=== PATIENT | female | born 1985 | race Caucasian/White ===

== ENCOUNTER 2019-04-28 06:49 | Emergency (ER) | payer BC ==
[2019-04-28] MEDS ORDERED: Sodium Chloride 0.9% 1,000 ML IV ONE (06:52)
[2019-04-28] MEDS ORDERED: Aspirin 81 MG Tab.Chew PO ONE (06:52)
--- NOTE | 2019-04-28 07:02 | EDM.PDOC ---
ED HPI GENERAL MEDICAL PROBLEM - General Chief Complaint: Chest Pain Stated Complaint: CHEST PAIN Time Seen by Provider: 04/28/19 06:58 Source of Information: Reports: Patient - History of Present Illness INITIAL COMMENTS - FREE TEXT/NARRATIVE: HISTORY AND PHYSICAL: History of present illness: []Patient presents with right-sided chest pain for 1 week, pain waxing and waning over the last week currently 2 out of 10. She awoke with discomfort this morning at 3 AM and went to work presents now as such, she does have history of anxiety and did have some increased anxiety well at work however pain seems to be reproducible on right sternal border at current there is also food component that she had eaten pulled pork sandwich prior to going to bed Patient is in no distress no fever nausea vomiting chills sweats no shortness breath headache dizziness or palpitation no bowel or urine symptoms no radiation arm neck or jaw no diaphoresis Review of systems: As per history of present illness and below otherwise all systems reviewed and negative. Past medical history: As per history of present illness and as reviewed below otherwise noncontributory. Surgical history: As per history of present illness and as reviewed below otherwise noncontributory. Social history: No reported history of drug or alcohol abuse. Family history: As per history of present illness and as reviewed below otherwise noncontributory. Physical exam: HEENT: Atraumatic, normocephalic, pupils reactive, negative for conjunctival pallor or scleral icterus, mucous membranes moist, throat clear, neck supple, nontender, trachea midline. Lungs: Clear to auscultation, breath sounds equal bilaterally, chest nontender on left, tender along right sternal border. Heart: S1S2, regular, negative for clicks, rubs, or JVD. Abdomen: Soft, nondistended, nontender. Negative for masses or hepatosplenomegaly. Negative for costovertebral tenderness. Pelvis: Stable nontender. Genitourinary: Deferred. Rectal: Deferred. Extremities: Atraumatic, negative for cords or calf pain. Neurovascular unremarkable. Neuro: Awake, alert, oriented. Cranial nerves II through XII unremarkable. Cerebellum unremarkable. Motor and sensory unremarkable throughout. Exam nonfocal. Diagnostics: [CBC CMP troponin lipase Chest 1 view EKG ] Therapeutics: [ normal saline Aspirin ] Impression: [re producible chest wall pain history of anxiety ] Definitive disposition and diagnosis as appropriate pending reevaluation and review of above. chest Pain Score (Numeric/FACES): 2 - Related Data Allergies Allergy/AdvReac Type Severity Reaction Status Date / Time No Known Allergies Allergy Verified 04/28/19 06:56 Home Meds: Home Meds QUEtiapine [SEROquel] 100 mg PO BEDTIME 04/28/19 [History] buPROPion [Wellbutrin] 0 mg PO DAILY 04/28/19 [History] ED ROS GENERAL - Review of Systems Review Of Systems: See Below ED EXAM, GENERAL - Physical Exam Exam: See Below Course - Vital Signs Last Recorded V/S: Last Vital Signs Temp 97 F 04/28/19 06:53 Pulse 78 04/28/19 06:53 Resp 17 04/28/19 06:53 BP 131/89 04/28/19 06:53 Pulse Ox 98 04/28/19 06:53 - Orders/Labs/Meds Orders: Active Orders 24 hr Category Date Time Status Chest 1V Frontal [CR] Stat Exams 04/28/19 06:52 Ordered CBC WITH AUTO DIFF [HEME] Stat Lab 04/28/19 06:51 Ordered COMPREHENSIVE METABOLIC PN,CMP [CHEM] Stat Lab 04/28/19 06:52 Ordered HCG QUALITATIVE,URINE [URCHEM] Stat Lab 04/28/19 06:53 Ordered LIPASE [CHEM] Stat Lab 04/28/19 06:52 Ordered TROPONIN I [CHEM] Stat Lab 04/28/19 06:52 Ordered UA RFX YOVANY AND CULT IF INDIC [URIN] Stat Lab 04/28/19 06:53 Ordered Sodium Chloride 0.9% [Normal Saline] 1,000 ml Med 04/28/19 06:52 Active IV STAT Medication Orders Sodium Chloride (Normal Saline) 1,000 mls @ 999 mls/hr IV STAT ONE Stop: 04/28/19 07:52 Meds: Medications Generic Name Dose Route Start Last Admin Trade Name Freq PRN Reason Stop Dose Admin Sodium Chloride 1,000 mls @ 999 mls/hr 04/28/19 06:52 Normal Saline IV 04/28/19 07:52 STAT ONE Discontinued Medications Generic Name Dose Route Start Last Admin Trade Name Freq PRN Reason Stop Dose Admin Aspirin 324 mg 04/28/19 06:52 Aspirin PO 04/28/19 06:53 ONETIME ONE Departure - Departure Time of Disposition: 07:02 Disposition: Home, Self-Care 01 Condition: Good Clinical Impression: Chest wall pain - Discharge Information Referrals: PCP,None [Primary Care Provider] - Additional Instructions: The following information is given to patients seen in the emergency department who are being discharged to home. This information is to outline your options for follow-up care. We provide all patients seen in our emergency department with a follow-up referral. The need for follow-up, as well as the timing and circumstances, are variable depending upon the specifics of your emergency department visit. If you don't have a primary care physician on staff, we will provide you with a referral. We always advise you to contact your personal physician following an emergency department visit to inform them of the circumstance of the visit and for follow-up with them and/or the need for any referrals to a consulting specialist. The emergency department will also refer you to a specialist when appropriate. This referral assures that you have the opportunity for follow-up care with a specialist. All of these measure are taken in an effort to provide you with optimal care, which includes your follow-up. Under all circumstances we always encourage you to contact your private physician who remains a resource for coordinating your care. When calling for follow-up care, please make the office aware that this follow-up is from your recent emergency room visit. If for any reason you are refused follow-up, please contact the [facility] emergency department at and asked to speak to the emergency department charge nurse. - My Orders Last 24 Hours: My Active Orders 04/28/19 06:51 CBC WITH AUTO DIFF [HEME] Stat 04/28/19 06:52 Chest 1V Frontal [CR] Stat COMPREHENSIVE METABOLIC PN,CMP [CHEM] Stat LIPASE [CHEM] Stat TROPONIN I [CHEM] Stat Sodium Chloride 0.9% [Normal Saline] 1,000 ml IV STAT 04/28/19 06:53 HCG QUALITATIVE,URINE [URCHEM] Stat UA RFX YOVANY AND CULT IF INDIC [URIN] Stat - Assessment/Plan Last 24 Hours: My Active Orders 04/28/19 06:51 CBC WITH AUTO DIFF [HEME] Stat 04/28/19 06:52 Chest 1V Frontal [CR] Stat COMPREHENSIVE METABOLIC PN,CMP [CHEM] Stat LIPASE [CHEM] Stat TROPONIN I [CHEM] Stat Sodium Chloride 0.9% [Normal Saline] 1,000 ml IV STAT 04/28/19 06:53 HCG QUALITATIVE,URINE [URCHEM] Stat UA RFX YOVANY AND CULT IF INDIC [URIN] Stat
--- NOTE | 2019-04-28 07:32 | CR ---
INDICATION: Chest pain x1 week. FINDINGS: A portable AP upright view of the chest was obtained. The cardiac silhouette and pulmonary vasculature are within normal limits. The lungs are clear bilaterally. IMPRESSION: No evidence of acute pulmonary disease. Dictated by Antony Monique MD @ Apr 28 2019 7:30AM Signed by Dr. Antony Monique @ Apr 28 2019 7:31AM
[2019-04-28 07:33] LABS: CHLORIDE,CL 101 mmol/L (98-107); SODIUM,NA 138 mmol/L (136-145)
== END 2019-04-28 08:23 | disposition home or self-care (01) ==
LOC: MW.ED 06:49
DX: R07.89 Other chest pain (principal); F41.9 Anxiety disorder, unspecified; Z79.899 Other long term (current) drug therapy
CPT/HCPCS: 36415; 71045; 80053; 81001; 81025; 83690; 84484; 85025; 93005; 96360; 99285; A9270; J7040; 99283

== ENCOUNTER 2020-09-18 08:45 | Emergency (ER) | payer OTHER, BC ==
--- NOTE | 2020-09-18 09:12 | EDM.PDOC ---
ED HPI GENERAL MEDICAL PROBLEM - General Chief Complaint: Lower Extremity Injury/Pain Stated Complaint: INJURY TO LT BIG TOE Time Seen by Provider: 09/18/20 08:46 Source of Information: Reports: Patient History Limitations: Reports: No Limitations - History of Present Illness INITIAL COMMENTS - FREE TEXT/NARRATIVE: 33-year-old female the past medical history of anxiety presenting with a toe injury. 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 She is concerned that she may have broken her toe. She has been unable to bear weight normally due to pain. She took ibuprofen at home with partial relief of her pain. She denies any other injuries. Past medical history: Reviewed, no additional pertinent history. Surgical history: Reviewed in system, no additional pertinent history. Social history: Reviewed in system, no additional pertinent history. Family history: Reviewed in system, no additional pertinent history. PHYSICAL EXAM Vital signs reviewed. Nursing notes reviewed. Constitutional: Awake, alert, non-distressed. Head: Normocephalic, atraumatic. Eyes: EOMI, conjunctiva normal, no discharge, no scleral icterus. Ears, Nose, Throat: External ears and nose normal, moist oral mucosa. Cardiovascular: 2+ left DP pulse, capillary refill less than 2 seconds. Pulmonary: normal work of breathing, no accessory muscle use. Abdomen/GI: Soft, nontender, nondistended, no guarding or rigidity, no masses. Musculoskeletal: Tenderness and ecchymosis to the left second toe with limited range of motion due to pain. Integumentary: Appropriate color for ethnicity, warm, dry, no pallor or jaundice, no rash. Neurologic: Alert, answering questions appropriately, normal speech, no facial droop, moving all extremities well. Sensation intact to light touch the left second toe. Psychiatric: Appropriate mood and affect, normal thought process. This patient was seen and evaluated during the 2019 SARS-CoV-2 novel coronavirus pandemic period. Community viral transmission is ongoing at time of this encounter and the emergency department is operating under pandemic response procedures. 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: Psychiatric History: Reports: Depression Social & Family History - Family History Family Medical History: No Pertinent Family History - Tobacco Use Tobacco Use Status *Q: Current Some Day Tobacco User Years of Tobacco use: 16 Packs/Tins Daily: 0 - Caffeine Use Caffeine Use: Reports: Soda - Recreational Drug Use Recreational Drug Use: No Review of Systems - Review of Systems Review Of Systems: See Below ED EXAM, GENERAL - Physical Exam Exam: See Below ED TRAUMA EXTREMITY PROCEDURES - Splinting Left 2nd Digit Splint Site: Left second toe Pre-Procedure NV Status: Normal Post-Procedure NV Status: Normal Splint Material: Ramiro Tape Applied & Form Fitted By: Provider Provider Post-Splint Application NV Check: NV Status Normal Complications: No Course - Vital Signs Text/Narrative:: Patient hemodynamically stable, afebrile, well-appearing, looks nontoxic. Differential diagnosis includes but is not limited to: Fracture, dislocation, strain, contusion, etc. Neurovascular intact in left second toe. X-rays demonstrated a nondisplaced longitudinally oriented fracture of the distal phalanx of left second toe. Patient declined pain medications. Second toe was ramiro taped to the adjacent digit. Patient will be given a hard soled postoperative shoe. Stable discharge home with instructions for [id number] Tylenol Motrin and primary care follow-up as needed. Hard-soled post-operative left shoe, duration 1 month. Plan: Patient is stable to discharge home with outpatient primary care clinic follow-up. Strict emergency department return precautions were provided, patient indicated understanding. All questions were answered prior to departure. Discharged in good condition. Last Recorded V/S: Last Vital Signs Temp 36.5 C 09/18/20 09:02 Pulse 104 H 09/18/20 09:02 Resp 16 09/18/20 09:02 BP 118/85 09/18/20 09:02 Pulse Ox 98 09/18/20 09:02 - Orders/Labs/Meds Orders: Active Orders 24 hr Category Date Time Status DME for Discharge [COMM] Stat Oth 09/18/20 09:58 Ordered Departure - Departure Time of Disposition: 09:57 Disposition: Home, Self-Care 01 Condition: Good Clinical Impression: Fracture of second toe, left, closed Qualifiers: Encounter type: initial encounter Qualified Code(s): S92.502A - Displaced unspecified fracture of left lesser toe(s), initial encounter for closed fracture - Discharge Information *PRESCRIPTION DRUG MONITORING PROGRAM REVIEWED*: Not Applicable *COPY OF PRESCRIPTION DRUG MONITORING REPORT IN PATIENT ANNIKA: Not Applicable Instructions: Toe Fracture Referrals: Phillip Stoll MD [Primary Care Provider] - 2 Weeks (As needed.) Forms: ED Department Discharge Additional Instructions: You were seen in the emergency department for a toe injury. X-rays showed that you fractured your left second toe. You were ramiro taped. You can take [id number] Tylenol or Motrin as needed for pain. I recommend [id number] extra strength acetaminophen (1000 mg every 6 hours) and ibuprofen (400 mg every 6 hours) to help treat your pain. You can follow-up with your primary medical doctor in the next 1 to 2 weeks for reevaluation if you are not feeling better. Warning signs to come back to the ER include: Worsening pain, numbness or tingling of the injured toe, or any other new or worsening symptoms. Please return the emergency department immediately if your symptoms worsen or if you feel worse. Thank you for choosing the [facility] emergency department in [place] for your medical needs today. It was a pleasure caring for you. The following information is given to patients seen in the emergency department who are being discharged. This information is to outline your options for follow-up care. We provide all patients seen in our emergency department with a follow-up referral. The need for follow-up, as well as the timing and circumstances, are variable depending upon the specifics of your emergency department visit. If you don't have a primary care physician on staff, we will provide you with a referral. We always advise you to contact your personal physician following an emergency department visit to inform them of the circumstance of the visit and for follow-up with them and/or the need for any referrals to a consulting specialist. The emergency department will also refer you to a specialist when appropriate. This referral assures that you have the opportunity for follow-up care with a specialist. All of these measure are taken in an effort to provide you with optimal care, which includes your follow-up. Under all circumstances we always encourage you to contact your private physician who remains a resource for coordinating your care. When calling for follow-up care, please make the office aware that this follow-up is from your recent emergency room visit. If for any reason you are refused follow-up, please contact the [facility] Emergency Department at and asked to speak to the emergency department charge nurse. If you do not have a primary care physician that is caring for you, you can contact these clinics below to set up an appointment to establish care: [facility] - Primary Care [address] [place], [place] [id number] [facility] [address] [place] [address] Sepsis Event Note (ED) - Evaluation Sepsis Screening Result: No Definite Risk - Focused Exam Vital Signs: Vital Signs Temp Pulse Resp BP Pulse Ox 09/18/20 09:02 36.5 C 104 H 16 118/85 98 - My Orders Last 24 Hours: My Active Orders 09/18/20 09:58 DME for Discharge [COMM] Stat - Assessment/Plan Last 24 Hours: My Active Orders 09/18/20 09:58 DME for Discharge [COMM] Stat
--- NOTE | 2020-09-18 09:44 | CR ---
Indication: Trauma the left 2nd toe Technique: A total of three views of the left 2nd toe were acquired. Comparison: None Findings: Bones: There is a nondisplaced longitudinally oriented fracture involving the distal phalanx of the left 2nd toe. Joint spaces: The fracture enters the joint space Soft tissues: There is soft tissue swelling Impression: Fracture of the distal phalanx of the left 2nd toe Dictated by James Mckeon MD @ Sep 18 2020 9:39AM Signed by Dr. James Mckeon @ Sep 18 2020 9:41AM
== END 2020-09-18 10:13 | disposition home or self-care (01) ==
LOC: MW.ED 08:45
DX: S92.532A Displaced fracture of distal phalanx of left lesser toe(s), initial encounter for closed fracture (principal); F32.9 Major depressive disorder, single episode, unspecified; F17.200 Nicotine dependence, unspecified, uncomplicated; Z79.899 Other long term (current) drug therapy; W22.8XXA Striking against or struck by other objects, initial encounter; Y93.02 Activity, running; Y92.512 Supermarket, store or market as the place of occurrence of the external cause; Y99.0 Civilian activity done for income or pay
CPT/HCPCS: 73660-26-T1; 73660-T1; 99282; 99283-25

== ENCOUNTER 2021-08-29 06:04 | Emergency (ER) | payer BC ==
[2021-08-29] MEDS ORDERED: Sodium Chloride 0.9% 10 ML Syringe FLUSH PRN (06:17)
[2021-08-29] MEDS ORDERED: Sodium Chloride 0.9% 2.5 ML Syringe FLUSH PRN (06:17)
--- NOTE | 2021-08-29 06:21 | EDM.PDOC ---
<Peña Cruz - Last Filed: 08/29/21 06:46> ED HPI GENERAL MEDICAL PROBLEM - General Chief Complaint: General Stated Complaint: SOB Time Seen by Provider: 08/29/21 06:05 - History of Present Illness INITIAL COMMENTS - FREE TEXT/NARRATIVE: Patient is a previously well 35-year-old female with history of anxiety who recently had a COVID-19 she was cleared to go back to work 1 week ago. She is presenting now with shortness of breath. She has had some persistent issues with nasal congestion but quite minimal shortness of breath over the last few days. She has been up since 2 AM feeling that she has been unable to catch her breath. No chest pain no syncope or near syncope no abdominal pain no fevers or chills. Symptoms constant without clear trigger or exacerbating or alleviating factors or other associated symptoms. 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 Skin: No rash. Eyes: No vision problems. ENT: No sore throat. Neck: No neck stiffness. Respiratory: Per HPI Cardiac: No chest pain. Gastrointestinal: No nausea, vomiting or abdominal pain. Musculoskeletal: No myalgias/arthralgias. Neurologic: No headache. ED EXAM, GENERAL - Physical Exam Exam: See Below Free Text/Narrative:: General Appearance: No acute distress, appears comfortable Skin: No rash HEENT: Normocephalic/atraumatic, sclera anicteric, mucous membranes moist Neck: Normal range of motion Chest and Lungs: Bilateral breath sounds, clear to auscultation Cardiovascular: Regular rate and rhythm, no murmur Abdomen: Soft, non-tender Musculoskeletal: No edema or tenderness Neurologic: Awake, alert, no obvious deficits, moving all extremities Psychiatric: Appropriate, cooperative #1 Interpretation EKG Date: 08/29/21 Time: 06:35 EKG Interpretation Comments: Normal sinus rhythm rate of 77 normal axis and intervals no acute ischemia. Departure - Departure Disposition: Home, Self-Care 01 Clinical Impression: Palpitations - Discharge Information Referrals: Phillip Stoll MD [Primary Care Provider] - Forms: ED Department Discharge Additional Instructions: Return for passing out, chest pain shortness of breath or change or worsening condition or lack of improvement. Please follow-up with your primary care doctor this week. The following information is given to patients seen in the emergency department who are being discharged to home. This information is to outline your options for follow-up care. We provide all patients seen in our emergency department with a follow-up referral. The need for follow-up, as well as the timing and circumstances, are variable depending upon the specifics of your emergency department visit. If you don't have a primary care physician on staff, we will provide you with a referral. We always advise you to contact your personal physician following an emergency department visit to inform them of the circumstance of the visit and for follow-up with them and/or the need for any referrals to a consulting specialist. The emergency department will also refer you to a specialist when appropriate. This referral assures that you have the opportunity for follow-up care with a specialist. All of these measure are taken in an effort to provide you with optimal care, which includes your follow-up. Primary care clinics in the area: [facility] [address] [place] [id number] [facility] [address] [place] [address] Under all circumstances we always encourage you to contact your private physi kelby who remains a resource for coordinating your care. When calling for follow- up care, please make the office aware that this follow-up is from your recent emergency room visit. If for any reason you are refused follow-up, please contact the [facility] Emergency Department at and asked to speak to the emergency department charge nurse. - Assessment/Plan Assessment:: 35-year-old female presenting with shortness of breath after recently getting over COVID-19. Anxiety could be playing a role in the patient's presentation and patient herself suggest this. However, other etiologies need to be considered. Her lungs are completely clear she has no signs of bronchitis I think post Covid pneumonia is unlikely but x-ray pending. ACS felt exceptionally unlikely. EKG and troponin to assess for any signs of heart strain or cardiomyopathy. But I do not have concern for ACS. PE does need to be considered. That said she has no pleuritic chest pain she is not significantly tachycardic and she is not hypoxic. Given that we will start with CBC CMP troponin EKG chest x-ray and D-dimer if initial evaluation is reassuring patient will be stable for discharge. Results of labs and CXR remain pending. Pt signed out to Dr. Brooks pending results and final disposition. <Fabien Brooks - Last Filed: 08/29/21 09:00> Course - Vital Signs Text/Narrative:: Patient signed out to me pending CT and chest x-ray results. These are negative. The patient's work-up is otherwise unremarkable. Supportive care with return precautions and PCP follow-up. Last Recorded V/S: Last Vital Signs Temp 36.3 C 08/29/21 06:12 Pulse 67 08/29/21 08:15 Resp 16 08/29/21 08:15 BP 98/65 08/29/21 08:15 Pulse Ox 100 08/29/21 08:15 - Orders/Labs/Meds Orders: Active Orders 24 hr Category Date Time Status Sodium Chloride 0.9% [Saline Flush] Med 08/29/21 06:17 Active 10 ml FLUSH ASDIRECTED PRN Sodium Chloride 0.9% [Saline Flush] Med 08/29/21 06:17 Active 2.5 ml FLUSH ASDIRECTED PRN Saline Lock Insert [OM.PC] Stat Oth 08/29/21 06:17 Ordered Medication Orders Sodium Chloride (Sodium Chloride 0.9% 10 Ml Syringe) 10 ml FLUSH ASDIRECTED PRN PRN Reason: Keep Vein Open Last Admin: 08/29/21 08:15 Dose: 10 ml Documented by: DESTINI Sodium Chloride (Sodium Chloride 0.9% 2.5 Ml Syringe) 2.5 ml FLUSH ASDIRECTED PRN PRN Reason: Keep Vein Open Last Admin: 08/29/21 08:15 Dose: 2.5 ml Documented by: DESTINI Labs: Laboratory Tests 08/29/21 08/29/21 08/29/21 Range/Units 06:25 06:29 06:29 WBC 6.41 (4.0-11.0) K/uL RBC 4.62 (4.30-5.90) M/uL Hgb 13.5 (12.0-16.0) g/dL Hct 40.4 (36.0-46.0) % MCV 87.4 (80.0-98.0) fL MCH 29.2 (27.0-32.0) pg MCHC 33.4 (31.0-37.0) g/dL RDW Std Deviation 45.3 (28.0-62.0) fl RDW Coeff of Barby 14 (11.0-15.0) % Plt Count 258 (150-400) K/uL MPV 10.20 (7.40-12.00) fL Neut % (Auto) 71.8 (48.0-80.0) % Lymph % (Auto) 16.7 (16.0-40.0) % [place] % (Auto) 7.5 (0.0-15.0) % Eos % (Auto) 3.7 (0.0-7.0) % Baso % (Auto) 0.3 (0.0-1.5) % Neut # (Auto) 4.6 (1.4-5.7) K/uL Lymph # (Auto) 1.1 (0.6-2.4) K/uL [place] # (Auto) 0.5 (0.0-0.8) K/uL Eos # (Auto) 0.2 (0.0-0.7) K/uL Baso # (Auto) 0.0 (0.0-0.1) K/uL Nucleated RBC % 0.0 /100WBC Nucleated RBCs # 0 K/uL D-Dimer, Quantitative 0.56 H (0.0-0.50) mg/L FEU Sodium (136-145) mmol/L Potassium (3.5-5.1) mmol/L Chloride (98-107) mmol/L Carbon Dioxide (21.0-32.0) mmol/L BUN (7.0-18.0) mg/dL Creatinine (0.6-1.0) mg/dL Est Cr Clr Drug Dosing mL/min Estimated GFR (MDRD) ml/min Glucose (74-106) mg/dL Calcium (8.5-10.1) mg/dL Total Bilirubin (0.2-1.0) mg/dL AST (15-37) IU/L ALT (14-63) IU/L Alkaline Phosphatase (46-116) U/L Troponin I (0.000-0.056) ng/mL Total Protein (6.4-8.2) g/dL Albumin (3.4-5.0) g/dL Globulin (2.6-4.0) g/dL Albumin/Globulin Ratio (0.9-1.6) Urine HCG, Qual NEGATIVE (NEGATIVE) 08/29/21 Range/Units 06:29 WBC (4.0-11.0) K/uL RBC (4.30-5.90) M/uL Hgb (12.0-16.0) g/dL Hct (36.0-46.0) % MCV (80.0-98.0) fL MCH (27.0-32.0) pg MCHC (31.0-37.0) g/dL RDW Std Deviation (28.0-62.0) fl RDW Coeff of Barby (11.0-15.0) % Plt Count (150-400) K/uL MPV (7.40-12.00) fL Neut % (Auto) (48.0-80.0) % Lymph % (Auto) (16.0-40.0) % [place] % (Auto) (0.0-15.0) % Eos % (Auto) (0.0-7.0) % Baso % (Auto) (0.0-1.5) % Neut # (Auto) (1.4-5.7) K/uL Lymph # (Auto) (0.6-2.4) K/uL [place] # (Auto) (0.0-0.8) K/uL Eos # (Auto) (0.0-0.7) K/uL Baso # (Auto) (0.0-0.1) K/uL Nucleated RBC % /100WBC Nucleated RBCs # K/uL D-Dimer, Quantitative (0.0-0.50) mg/L FEU Sodium 139 (136-145) mmol/L Potassium 3.9 (3.5-5.1) mmol/L Chloride 102 (98-107) mmol/L Carbon Dioxide 28.1 (21.0-32.0) mmol/L BUN 11 (7.0-18.0) mg/dL Creatinine 0.9 (0.6-1.0) mg/dL Est Cr Clr Drug Dosing 75.68 mL/min Estimated GFR (MDRD) > 60.0 ml/min Glucose 105 (74-106) mg/dL Calcium 8.5 (8.5-10.1) mg/dL Total Bilirubin 0.3 (0.2-1.0) mg/dL AST 15 (15-37) IU/L ALT 23 (14-63) IU/L Alkaline Phosphatase 72 (46-116) U/L Troponin I < 0.050 (0.000-0.056) ng/mL Total Protein 8.2 (6.4-8.2) g/dL Albumin 4.1 (3.4-5.0) g/dL Globulin 4.1 H (2.6-4.0) g/dL Albumin/Globulin Ratio 1.0 (0.9-1.6) Urine HCG, Qual (NEGATIVE) Meds: Medications Generic Name Dose Route Start Last Admin Trade Name Freq PRN Reason Stop Dose Admin Sodium Chloride 10 ml 08/29/21 06:17 08/29/21 08:15 Sodium Chloride 0.9% 10 Ml Syringe FLUSH 10 ml ASDIRECTED PRN Administration Keep Vein Open Sodium Chloride 2.5 ml 08/29/21 06:17 08/29/21 08:15 Sodium Chloride 0.9% 2.5 Ml Syringe FLUSH 2.5 ml ASDIRECTED PRN Administration Keep Vein Open Discontinued Medications Generic Name Dose Route Start Last Admin Trade Name Freq PRN Reason Stop Dose Admin Iopamidol 100 ml 08/29/21 07:47 08/29/21 07:49 Iopamidol 755 Mg/Ml 500 Ml Multipack Bottle IVPUSH 08/29/21 07:48 100 ml ONETIME ONE Administration Departure - Departure Time of Disposition: 09:00 Condition: Good Sepsis Event Note (ED) - Focused Exam Vital Signs: Vital Signs Temp Pulse Resp BP Pulse Ox 08/29/21 08:15 67 16 98/65 100 08/29/21 06:12 36.3 C 80 18 112/82 100
[2021-08-29 06:53] LABS: BLOOD UREA NITROGEN,BUN 11 mg/dL (7.0-18.0); CARBON DIOXIDE,CO2 28.1 mmol/L (21.0-32.0); CHLORIDE,CL 102 mmol/L (98-107); GLUCOSE RANDOM 105 mg/dL (74-106); POTASSIUM,K 3.9 mmol/L (3.5-5.1); SODIUM,NA 139 mmol/L (136-145)
--- NOTE | 2021-08-29 07:32 | CR ---
CHEST 2 VIEWS INDICATION: COVID-19 positive. Short of breath. IMPRESSION: Normal heart size and vascular pattern. Lungs are clear. No pneumothorax or pleural effusion. Dictated by Gino Galvez MD @ 08/29/2021 7:32:23 AM (Electronically Signed)
[2021-08-29] MEDS ORDERED: Iopamidol 755 MG/ML 500 ML Multipack Bottle IVPUSH ONE (07:47)
--- NOTE | 2021-08-29 08:12 | CT ---
INDICATION: Elevated D-dimer; shortness of breath. COMPARISON: Chest radiograph April 28, 2019 and August 29, 2021. TECHNIQUE: CT chest with intravenous contrast; coronal and sagittal reformats. FINDINGS: No CT evidence of acute or chronic pulmonary thromboembolism. No evidence of aortic aneurysm or dissection. Normal size cardiac silhouette without any evidence of pericardial effusion. No evidence of pulmonary infiltrates. No pleural effusion or chest wall pathology. Limited CT through the upper abdomen is unremarkable. IMPRESSION: Negative CT chest with intravenous contrast. Please note that all CT scans at this facility use dose modulation, iterative reconstruction, and/or weight-based dosing when appropriate to reduce radiation dose to as low as reasonably achievable. Dictated by Yanira Clark MD @ 08/29/2021 8:10:55 AM (Electronically Signed)
== END 2021-08-29 09:07 | disposition home or self-care (01) ==
LOC: MW.ED 06:04
DX: R00.2 Palpitations (principal)
CPT/HCPCS: 36415; 71046; 71275; 80053; 81025; 84484; 85025; 85379; 93005; 99285; Q9967